=== PATIENT | male | born 1965 | race African-American/Black ===

== ENCOUNTER 2022-01-06 12:54 | Emergency (ER) | payer OTHER, SELFPAY ==
[2022-01-06] VITALS (7 sets, daily range): BP systolic 162–190; BP diastolic 102–115; PULSE 87–115; RESP 16–20; TEMP 36.8; O2SAT 97–100
--- NOTE | 2022-01-06 14:32 | ED.MALEGU ---
HPI - Male Genitourinary General Chief complaint: Urogenital-Male Stated complaint: penile issue Time Seen by Provider: 01/06/22 13:14 Source: patient Mode of arrival: ambulatory Limitations: no limitations History of Present Illness HPI Narrative: Patient is 56-year-old -[place] male woke up yesterday morning with erected penis which been going on penile. Patient denies any recent sexual activity or any medication for erection. Patient also denies any history of fever, chills, nausea, vomiting, history of sickle cell anemia. Patient had similar symptoms months ago lasted for about 8 hours and then resolved. Related Data Allergies Allergy/AdvReac Type Severity Reaction Status Date / Time No Known Allergies Allergy Verified 01/06/22 12:55 Review of Systems Review of Systems: CONSTITUTIONAL: Denies fever, chills, or sweats. EYES: Denies visual changes, redness, or discharge. ENT: Denies rhinorrhea, congestion, sore throat, or otalgia. CARDIOVASCULAR: Denies chest pain, palpitations, or edema. RESPIRATORY: Denies cough or dyspnea. GASTROINTESTINAL: Denies abdominal pain, nausea, vomiting, or diarrhea. GENITOURINARY: Denies dysuria or hematuria. SKIN: Denies rash or itching. MUSCULOSKELETAL: Denies back pain, joint pain, or myalgia. NEUROLOGIC: Denies headache, numbness, or weakness. PSYCHIATRIC: Denies anxiety or depression. Exam Narrative: General appearance: Well-developed, well-nourished Skin: Normal color Chest and respiratory: Airway patent, no respiratory distress, no accessory muscle use Heart: Regular rate/rhythm Abdomen: Soft, nontender, no organomegaly, quiet bowel sounds, hard erected penis Vascular: Normal peripheral pulses, normal capillary refill. Musculoskeletal: Normal range of motion, nontender back Neurologic: Alert and oriented ?3, BASIC ACOUSTIC ANALYST is normal as tested, no gross motor deficit Course Consultations Consultation #1: Dr. Brand Date: 01/06/22 Time: 14:38 Consultation #2: Dr. Brand came to the emergency room and managed to treat the PRIAPISM. Also he recommended to let patient go home and to follow-up with him as outpatient or come back to the emergency room if the symptoms are worsening. Date: 01/06/22 Time: 16:57 Vital Signs Vital signs: Vital Signs Temperature 36.8 C 01/06/22 12:58 Pulse Rate 115 H 01/06/22 12:58 Respiratory Rate 16 01/06/22 12:58 Blood Pressure 190/115 H 01/06/22 12:58 Pulse Oximetry 100 01/06/22 12:58 Temperature 36.8 C 01/06/22 12:58 Pulse Rate 88 01/06/22 17:23 Respiratory Rate 18 01/06/22 17:23 Blood Pressure 162/102 H 01/06/22 17:23 Pulse Oximetry 98 01/06/22 17:23 MDM - Male Genitourinary MDM Narrative Medical decision making narrative: PRIAPISM Critical Care Time Critical Care Time Critical Care Time: Yes (30 minutes) Total Critical Care Time: 45 Discharge Plan Discharge Clinical Impression: Priapism Patient Disposition: Home, Self-Care Condition: Improved Instructions: Antibiotic Form, Nirmalaapism (ED) Additional Instructions: Return if symptoms are worsening , call Dr. Brand for appointment, take Tylenol as as needed for aches and pain, continue home medications. Follow-up/Referrals: Bella Brand MD [Physician] - 01/09/22 PHYSICIAN,[employer] [Primary Care Provider] -
--- NOTE | 2022-01-06 15:09 | PC.NURSE ---
Urologist and Dr. Marin at bedside for procedure. Consent was signed and pt is in agreement. Risks and benefits explained
[2022-01-06] MEDS: PHENYLEPHRINE 1,000 MCG/10 ML SYRINGE XX (15:20)
[2022-01-06] MEDS: SODIUM CHLORIDE 0.9% IV 250 ML 999 ML (15:20)
[2022-01-06] MEDS: LIDOCAINE HCL 1% LOCAL INJ 10 ML VIAL INFILTRATE (15:20)
--- NOTE | 2022-01-06 15:21 | PC.NURSE ---
All medications given by urologist at bedside intrapenile. Pt tolerating procedure well.
--- NOTE | 2022-01-06 16:09 | PC.NURSE ---
PT is resting in no acute distress. No erection noted at this time, no blood from site. Pt was given a warm blanket and lights dimmed.
--- NOTE | 2022-01-06 16:21 | PC.NURSE ---
Per Urologist Dr. Cervantes pt will be discharged. pt is driving home to [facility]. PT understands needs to stop at nearest ER if erection returns. [facility] [place].
--- NOTE | 2022-01-06 16:34 | WPDURCON ---
Assessment and Plan Assessment and plan (1) Priapism: Code(s): N48.30 - Priapism, unspecified Status: Acute Assessment and Plan: 56-year-old with priapism times 36hours, significant detumescence with ER irrigation aspiration -I offered the patient to stay overnight for observation in the morning and repeat procedures if necessary, however he prefers to have continued care locally. As the patient had significant detumescence, I feel he is safe for discharge at this time. He understands the need for emergent re-evaluation if he has return of priapism. The patient verbalized understanding. He plans to have his continued care at the [facility] in [place]. Patient states that he will go to the emergency department tomorrow if return of priapism, and follow-up on Sunday if he remains detumescenced Urology Consult Note HPI Date Seen: 01/06/22 Primary Care Provider: TRAINER PHYSICIAN Consult Narrative Narrative: Jamin Tsang is a 56 year old male presented today and was seen emergency department today after 36hours of priapism. The patient states he has had 1 previous episode of priapism the result on its own after 8hours. 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 The patient denies use of illicit medication. He denies use of PDE5 inhibitors in the past year. Denies use sleeping aids. Review of Systems Review of Systems: All systems reviewed & are unremarkable except as noted in HPI and below Meds Home Medications and Allergies Allergies Allergy/AdvReac Type Severity Reaction Status Date / Time No Known Allergies Allergy Verified 01/06/22 12:55 Vital Signs Vital Signs - 24 hr 01/06/22 12:58 01/06/22 14:30 01/06/22 15:16 Temperature 36.8 C Pulse Rate 115 H 105 H 90 Respiratory Rate 16 20 18 Blood Pressure 190/115 H 171/111 H 164/105 H Pulse Oximetry 100 97 99 01/06/22 15:22 01/06/22 15:33 01/06/22 16:09 Temperature Pulse Rate 87 91 104 H Respiratory Rate 18 18 16 Blood Pressure 165/112 H 167/115 H 164/102 H Pulse Oximetry 100 99 98 Exam Narrative: Patient is awake alert. He is in no acute distress. Breathing is unlabored his abdomen is soft nontender nondistended. Patient has bilateral descended testicles. Patient with firm bilateral corporal bodies consistent with ischemic priapism. Procedure: Informed consents obtained. Patient was given a penile block with 1% lidocaine without epinephrine. The patient was placed on a monitor with blood pressure and heart rate monitoring. He was then prepped. We then placed bilateral 18gauge needles into the corporal bodies with immediate return dark blood. We then irrigated the corpora with injectable saline allowing for partial detumescence . We then injected phenylephrine 100mcg. Further irrigation and aspiration was performed and additional 200mcg of phenylephrine was injected. Patient's vital signs remained stable. At this point the patient had over 50% of the tumescence. We then placed a Coban at the area of irrigation site. The patient tolerated the procedure well. I returned to the patient's room 1hour after irrigation and aspiration and re-examined the patient. The patient had approximately 70% tumescence. Patient was comfortable and stated that his pain was significantly improved from initial presentation. There was small hematoma development on each side of the corpora at area of aspiration.
== END 2022-01-06 17:23 | disposition home or self-care (01) ==
PROVIDERS: Emergency Provider Emergency Medicine
DX: N48.30 Priapism, unspecified (principal)
CPT/HCPCS: 54220; 96360; 96372; 99283; J2370; J7050